=== PATIENT | male | born 1950 | race Caucasian/White ===

== ENCOUNTER 2025-02-19 12:47 | Emergency (ER) | payer OTHER, SELFPAY ==
--- NOTE | ~2025-02-19 | CT_ITS ---
CT facial & cervical spine wo Ordering provider: Anurag Dougherty MD History: . Jaw pain status post fall . Comparison: None. Technique: Thin slice axial CT of the facial bones was performed without contrast. Coronal and sagit horace reformatted images were also obtained. . Automated exposure control and iterative reconstruction technique were employed. The dose-length product was 563.94 mGy-cm. FINDINGS: PARANASAL SINUSES: Bilateral ethmoid, frontal and left sphenoid sinus disease. Otherwise, Well aerate d. BONES: No facial fracture including no nasal bone fracture. ORBITS AND SUPERFICIAL SOFT TISSUES: The optic globes and orbits are normal. Frontal scalp hematoma. Otherwise, The superficial soft tissues are normal. VISUALIZED MASTOIDS: Minimal right mastoid effusion otherwise, Well aerated. LIMITED VISUALIZED BRAIN PARENCHYMA: Normal. IMPRESSION: No facial fracture. Bilateral frontal, ethmoid and left sphenoid sinus disease. CT facial & cervical spine wo Ordering provider: Anurag Dougherty MD History: . Jaw pain status post fall . Comparison: None. Technique: CT of the cervical spine was performed without contrast. Sagittal and coronal reformatted images were also obtained and reviewed. Automated exposure control and iterative reconstruction lupillo hnique were employed. The dose-length product was 563.94 mGy-cm. FINDINGS: VERTEBRAE: Postoperative changes in C3, C4 and C5.. No subluxation or acute fracture. The occipital c ondyles are intact. DISC SPACES: Narrowing of the disc C5-C6. Disc spacers are seen at the level of C3-C4, and C4-5. Mult ilevel facet joint disease. Multilevel intervertebral foraminal narrowing. PARASPINOUS SOFT TISSUES: Normal. Nodule in the right apical area is seen measuring 6 mm. 6 months follow-up CT is advised. IMPRESSION: No acute osseous abnormality cervical spine. Degenerative disc disease at the level of C5-C6. Nodule in the right apical area. 6 months follow-up CT is advised Reviewed, dictated and finalized at location A. IMPRESSION: No facial fracture. Bilateral frontal, ethmoid and left sphenoid sinus disease. CT facial & cervical spine wo Ordering provider: Anurag Dougherty MD History: . Jaw pain status post fall . Comparison: None. Technique: CT of the cervical spine was performed without contrast. Sagittal a nd coronal reformatted images were also obtained and reviewed. Automated expos ure control and iterative reconstruction technique were employed. The dose-andrea th product was 563.94 mGy-cm. FINDINGS: VERTEBRAE: Postoperative changes in C3, C4 and C5.. No subluxation or acute fra cture. The occipital condyles are intact. DISC SPACES: Narrowing of the disc C5-C6. Disc spacers are seen at the level of C3-C4, and C4-5. Multilevel facet joint disease. Multilevel intervertebral for aminal narrowing. PARASPINOUS SOFT TISSUES: Normal. Nodule in the right apical area is seen measuring 6 mm. 6 months follow-up CT i s advised.
--- NOTE | ~2025-02-19 | CT_ITS ---
CT brain wo con Ordering provider: Anurag Dougherty MD History: 75 years Male with . Head injury . Comparison: None. Technique: CT of the head without contrast. Radiation reduction technique utilized.The dose-length pr oduct was 756.67 mGy-cm. FINDINGS: BRAIN PARENCHYMA AND CSF SPACES: Mild leukoaraiosis and diffuse cortical atrophy. Mild atheromatous d isease. No midline shift, mass effect or hemorrhage. The brain parenchyma and CSF spaces are otherwi se normal. VISUALIZED PARANASAL SINUSES: Bilateral ethmoid sinus disease. Right nasal septal deviation. Otherwis e, Normal. MASTOIDS: Normal. BONES: Normal. SOFT TISSUES: Visualized nasopharynx is normal. Scalp hematoma is seen in the frontal scalp. Otherwi se, Superficial soft tissues are normal. IMPRESSION: No acute intracranial findings. Reviewed, dictated and finalized at location A.
[2025-02-19 12:52] VITALS: BP 206/96; PULSE 82; RESP 16; O2SAT 98
--- NOTE | 2025-02-19 13:25 | ED_ITS ---
HPI - General Adult General Chief complaint: Fall Stated complaint: fall Time Seen by Provider: 02/19/25 12:57 History of Present Illness HPI narrative: Patient 75-year-old gentleman presents emergency department with chief complaint of head injury. [place] cane patient reports that he fell forward struck his head reports that he has a laceration to his forehead and reports that he has pain in his jaw and also in his neck. Patient reports unsure of his last tetanus shot reports no loss of consciousness reports that he is not on blood thinners or anti-platelet therapy Related Data Allergies Allergy/AdvReac Type Severity Reaction Status Date / Time No Known Allergies Allergy Verified 02/19/25 13:11 Review of Systems Review of Systems: A 10 system review of systems was completed on the patient and is negative except for what is stated in the HPI. Nursing and ancillary documentation was reviewed. [facility] Family History Family History Other Diabetes mellitus Family history of arthritis Social History Social History Smoking status: Never smoker Alcohol intake: current Exam Narrative: GENERAL: Well-appearing, well-nourished, and in no acute distress. HEAD: Normocephalic, 0.5 cm laceration to the forehead 1 cm laceration to the forehead 1.5 cm laceration of the forehead. EYES: PERRLA and EOMI. ENT: Nares clear, no rhinorrhea or epistaxis. Mucous membranes moist. NECK: Supple. Minimal tenderness to palpation in the left side of the neck and midline CHEST: Clear to auscultation. No respiratory distress. HEART: Regular rate and rhythm. No murmur heard. Normal peripheral pulses. ABDOMEN: Soft, nontender, nondistended, normal active bowel sounds. EXTREMITIES: Normal range of motion. No edema. SKIN: Warm, dry, no rash. NEURO: No focal deficits. Alert and oriented x3. PSYCH: Normal mood and affect. Course Vital Signs Vital signs: Vital Signs Pulse Rate 82 02/19/25 12:52 Respiratory Rate 16 02/19/25 12:52 Blood Pressure 206/96 H 02/19/25 12:52 Pulse Oximetry 98 02/19/25 12:52 Oxygen Delivery Room Air 02/19/25 12:52 Pulse Rate 82 02/19/25 12:52 Respiratory Rate 16 02/19/25 12:52 Blood Pressure 206/96 H 02/19/25 12:52 Pulse Oximetry 98 02/19/25 12:52 Oxygen Delivery Room Air 02/19/25 12:52 Procedures Laceration Laceration 1: Date: 02/19/25 Time: 13:28 Site: face Size (cm): 0.5 Description: linear Depth: simple, single layer Local Anesthetic: none Pre-repair: wound explored and irrigated ====== Skin Level ====== Skin layer closed with: dermabond ====== Subcutaneous Layer ====== ====== Muscle Layer ====== ====== Tendon Layer ====== Laceration 2: Date: 02/19/25 Time: 13:28 Site: face Side (If applicable): left Size (cm): 1.5 Description: linear Depth: simple, single layer Local Anesthetic: none Pre-repair: wound explored and irrigated ====== Skin Level ====== Skin layer closed with: dermabond ====== Subcutaneous Layer ====== ====== Muscle Layer ====== ====== Tendon Layer ====== Laceration 3: Date: 02/19/25 Time: 13:29 Site: face Side (If applicable): right Size (cm): 1 Description: linear Depth: simple, single layer Local Anesthetic: none Pre-repair: wound explored and irrigated ====== Skin Level ====== Skin layer closed with: dermabond ====== Subcutaneous Layer ====== ====== Muscle Layer ====== ====== Tendon Layer ====== Medical Decision Making MDM Narrative Medical decision making narrative: Differential diagnosis includes head injury, cervical spine fracture, facial fracture CT head was ordered as we were also scanning for facial fracture or cervical spine fracture CT head showed no acute abnormality CT facial bones showed no facial fracture was signs of sinusitis but the patient is not showing symptoms of sinusitis CT cervical spine showed no evidence of fracture there was a pulmonary nodule present in the right apex Vital Signs Vital Signs: Vital Signs Pulse Rate 82 02/19/25 12:52 Respiratory Rate 16 02/19/25 12:52 Blood Pressure 206/96 H 02/19/25 12:52 Pulse Oximetry 98 02/19/25 12:52 Oxygen Delivery Room Air 02/19/25 12:52 Pulse Rate 82 02/19/25 12:52 Respiratory Rate 16 02/19/25 12:52 Blood Pressure 206/96 H 02/19/25 12:52 Pulse Oximetry 98 02/19/25 12:52 Oxygen Delivery Room Air 02/19/25 12:52 Discharge Plan Discharge Clinical Impression: Head injury, Fall from ground level, Face lacerations, Pulmonary nodule Patient Disposition: Home Condition: Stable Instructions: Antibiotic Form, Laceration (ED), Head Injury (ED), Skin Adhesive Care (ED), Pulmonary Nodules (ED) Additional Instructions: Your CT scan showed a pulmonary nodule in the right apex of your lung this will need to be followed up by your primary care provider and may need additional imaging in the next 6 months to make sure that there is no change Patient Language: Georgian Follow-up/Referrals: UNKNOWN,DOCTOR [Primary Care Provider] -
[2025-02-19 14:44] VITALS: BP 196/89; PULSE 72; RESP 16; TEMP 36.9; O2SAT 96
[2025-02-19] MEDS: TETANUS,DIPHTHERIA,AC PERTUSSIS ADULT (0.5 ML) BOOSTRIX IM (14:47)
--- OUTSIDE RECORDS SUMMARY | 2025-02-19 14:54 | XMS_ITS | Encounter Summary ---
Author Organization [employer] Address [address] [place] [address] Care Team Providers Care Cd Mixer Helper Name Role Phone [facility], External Provider Primary Care Provider Un available Encounter Details Date Type Department Care Team (Latest Contact Info) Description 06/13/2004 Outpatient [facility] Mario Duque MD [address] [address] MALIGN NEOPL PROSTATE (CMS/HCC) (Primary Dx) Social History Tobacco Use Types Packs/Day Years Used Date Smoking Tobacco: Never Assessed Sex and Gender Information Value Date Recorded Sex Assigned at Not on file Legal Sex Male 4:00 AM PULMONARY FELLOW Gender Identity Not on file Sexual Orientation Not on file documented as of this encounter Plan of Treatment Not on file documented as of this encounter Visit Diagnoses Diagnosis Malignant neoplasm of prostate (CMS/HCC)- Primary Malignant neoplasm of prostate documented in this encounter Care Teams Cd Mixer Helper Relationship Specialty Start Date End Date [facility], External Provider [address] [place] [address] PCP - General 08/04/16 documented as of this encounter
--- OUTSIDE RECORDS SUMMARY | 2025-02-19 14:54 | XMS_ITS | Encounter Summary ---
Author Organization [employer] Address [address] [place] [address] Care Team Providers Care Tub Tender Name Role Phone [facility], External Provider Primary Care Provider Un available Encounter Details Date Type Department Care Team (Latest Contact Info) Description 12/02/2004 Outpatient Historical [facility] Mario Duque MD [address] [address] MALIGN NEOPL PROSTATE (CMS/HCC) (Primary Dx) Social History Tobacco Use Types Packs/Day Years Used Date Smoking Tobacco: Never Assessed Sex and Gender Information Value Date Recorded Sex Assigned at Not on file Legal Sex Male 4:00 AM COAT AGENT Gender Identity Not on file Sexual Orientation Not on file documented as of this encounter Plan of Treatment Not on file documented as of this encounter Procedures Procedure Name Priority Date/Time Associated Diagnosis Comments PSA Routine 12/02/2004 11:04 AM CDT documented in this encounter Results * PSA (12/02/2004 11:04 AM CDT) PSA <0.1 0.0 - 4.0 ng/mL INTERFACE SYSTEM Comment:Performed on [email or web address] System 12/02/2004 11:0 4 AM CDT us Mario Duque MD CHEMISTRY ORDERABLES Final Result INTERFACE SYSTEM Refer to clinic/hospital department documented in this encounter Visit Diagnoses Diagnosis Malignant neoplasm of prostate (CMS/HCC)- Primary Malignant neoplasm of prostate documented in this encounter Care Teams Tub Tender Relationship Specialty Start Date End Date [facility], External Provider [address] [place] [address] PCP - General 08/04/16 documented as of this encounter
--- OUTSIDE RECORDS SUMMARY | 2025-02-19 14:54 | XMS_ITS | Encounter Summary ---
Author Organization [employer] Address [address] [place] [address] Care Team Providers Care Ship Design Teacher Name Role Phone [facility], External Provider Primary Care Provider Un available Encounter Details Date Type Department Care Team (Late st Contact Info) Description 10/13/2005 Outpatient Historical [facility] ([facility] [address] 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
--- OUTSIDE RECORDS SUMMARY | 2025-02-19 14:54 | XMS_ITS | Encounter Summary ---
Author Organization [employer] Address [address] [place] [address] Care Team Providers Care Telecom Network Manager Name Role Phone [facility], External Provider Primary Care Provider Un available Encounter Details Date Type Department Care Team (Latest Contact Info) Description 09/07/2004 Outpatient [facility] Mario Duque MD [address] [address] MALIGN NEOPL PROSTATE (CMS/HCC) (Primary Dx) Social History Tobacco Use Types Packs/Day Years Used Date Smoking Tobacco: Never Assessed Sex and Gender Information Value Date Recorded Sex Assigned at Not on file Legal Sex Male 4:00 AM FINANCIAL COMPLIANCE OFFICER Gender Identity Not on file Sexual Orientation Not on file documented as of this encounter Plan of Treatment Not on file documented as of this encounter Procedures Procedure Name Priority Date/Time Associated Diagnosis Comments PSA Routine 09/07/2004 1:27 PM FINANCIAL COMPLIANCE OFFICER documented in this encounter Results * PSA (09/07/2004 1:27 PM FINANCIAL COMPLIANCE OFFICER) PSA <0.1 0.0 - 4.0 ng/mL INTERFACE SYSTEM Comment:Performed on [email or web address] System 09/07/2004 1:27 PM FINANCIAL COMPLIANCE OFFICER us Mario Duque MD CHEMISTRY ORDERABLES Final Result INTERFACE SYSTEM Refer to clinic/hospital department documented in this encounter Visit Diagnoses Diagnosis Malignant neoplasm of prostate (CMS/HCC)- Primary Malignant neoplasm of prostate documented in this encounter Care Teams Telecom Network Manager Relationship Specialty Start Date End Date [facility], External Provider [address] [place] [address] PCP - General 08/04/16 documented as of this encounter
--- OUTSIDE RECORDS SUMMARY | 2025-02-19 14:54 | XMS_ITS | Encounter Summary ---
Author Organization [employer] Address [address] [place] [address] Care Team Providers Care Nurse Auditor Name Role Phone [facility], External Provider Primary Care Provider Un available Encounter Details Date Type Department Care Team (Late st Contact Info) Description 11/14/2006 Outpatient Historical [facility] Mario Duque MD [address] [address] Social History Tobacco Use Types Packs/Day Years Used Date Smoking Tobacco: Never Assessed Sex and Gender Information Value Date Recorded Sex Assigned at Not on file Legal Sex Male 4:00 AM STOCK RAISER Gender Identity Not on file Sexual Orientation Not on file documented as of this encounter Plan of Treatment Not on file documented as of this encounter Visit Diagnoses Not on filedocumented in this encounter Care Teams Nurse Auditor Relationship Specialty Start Date End Date [facility], External Provider [address] [place] [address] PCP - General 08/04/16 documented as of this encounter
--- OUTSIDE RECORDS SUMMARY | 2025-02-19 14:54 | XMS_ITS | Encounter Summary ---
Author Organization [employer] Address [address] [place] [address] Care Team Providers Care Ladle Puller Name Role Phone [facility], External Provider Primary Care Provider Un available Encounter Details Date Type Department Care Team (Latest Contact Info) Description 01/14/2004 Outpatient Historical [facility] Mario Duque MD [address] [address] MALIGN NEOPL PROSTATE (CMS/HCC) (Primary Dx) Social History Tobacco Use Types Packs/Day Years Used Date Smoking Tobacco: Never Assessed Sex and Gender Information Value Date Recorded Sex Assigned at Not on file Legal Sex Male 4:00 AM WELLNESS DIRECTOR Gender Identity Not on file Sexual Orientation Not on file documented as of this encounter Plan of Treatment Not on file documented as of this encounter Visit Diagnoses Diagnosis Malignant neoplasm of prostate (CMS/HCC)- Primary Malignant neoplasm of prostate documented in this encounter Care Teams Ladle Puller Relationship Specialty Start Date End Date [facility], External Provider [address] [place] [address] PCP - General 08/04/16 documented as of this encounter
--- OUTSIDE RECORDS SUMMARY | 2025-02-19 14:54 | XMS_ITS | Encounter Summary ---
Author Organization [employer] Address [address] [place] [address] Care Team Providers Care Computer Systems Technology Instructor Name Role Phone [facility], External Provider Primary Care Provider Un available Encounter Details Date Type Department Care Team (Latest Contact Info) Description 10/19/2005 Outpatient Historical [facility] Mario Duque MD [address] [address] Personal History of Malignant Neoplasm of Prostate (Primary Dx) Social History Tobacco Use Types Packs/Day Years Used Date Smoking Tobacco: Never Assessed Sex and Gender Information Value Date Recorded Sex Assigned at Not on file Legal Sex Male 4:00 AM SOCIAL MEDIA CAMPAIGN MANAGER Gender Identity Not on file Sexual Orientation Not on file documented as of this encounter Plan of Treatment Not on file documented as of this encounter Procedures Procedure Name Priority Date/Time Associated Diagnosis Comments POC, BLOOD GASES Routine 10/19/2005 11:3 6 AM SOCIAL MEDIA CAMPAIGN MANAGER POC GLUCOSE Routine 10/19/2005 11:33 AM SOCIAL MEDIA CAMPAIGN MANAGER POC GLUCOSE Routine 10/19/2005 8:17 AM SOCIAL MEDIA CAMPAIGN MANAGER HEMOGLOBIN AND HEMATOCRIT Routine 10/13/2005 10:43 AM SOCIAL MEDIA CAMPAIGN MANAGER BASIC METABOLIC PANEL Routine 10/13/2005 10:43 AM SOCIAL MEDIA CAMPAIGN MANAGER documented in this encounter Results * POC RT, BLOOD GASES (10/19/2005 11:36 AM SOCIAL MEDIA CAMPAIGN MANAGER) PATIENT'S TEMPERATURE 37.0 Degree C INTERFACE SYSTEM POTASSIUM POC 4.3 3.5 - 4.9 mmol/L INTERFACE SYSTEM 10/19/2005 11:3 6 AM SOCIAL MEDIA CAMPAIGN MANAGER us Mario Duque MD CHEMISTRY ORDERABLES Final Result Performing Organization Address [facility] Phone Number INTERFACE SYSTEM Refer to clinic/hospital department * (ABNORMAL) POC GLUCOSE (10/19/2005 11:33 AM SOCIAL MEDIA CAMPAIGN MANAGER) GLUCOSE POC 242(H) 65 - 109 mg/dL INTERFACE SYSTEM 10/19/2005 11:3 3 AM SOCIAL MEDIA CAMPAIGN MANAGER us Mario Duque MD POINT OF CARE TESTING Final Result Performing Organization Address [facility] Phone Number INTERFACE SYSTEM Refer to clinic/hospital department * (ABNORMAL) POC GLUCOSE (10/19/2005 8:17 AM SOCIAL MEDIA CAMPAIGN MANAGER) GLUCOSE POC 292(H) 65 - 109 mg/dL INTERFACE SYSTEM 10/19/2005 8:17 AM SOCIAL MEDIA CAMPAIGN MANAGER Result Bernabe Duque MD POINT OF CARE TESTING Final Result Performing Organization Address [facility] Phone Number INTERFACE SYSTEM Refer to clinic/hospital department * HEMOGLOBIN AND HEMATOCRIT (10/13/2005 10:43 AM SOCIAL MEDIA CAMPAIGN MANAGER) HEMOGLOBIN 15.2 13.6 - 16.5 g/dL INTERFACE SYSTEM HEMATOCRIT 43.7 40.0 - 48.0 % INTERFACE SYSTEM 10/13/2005 10:4 3 AM SOCIAL MEDIA CAMPAIGN MANAGER Result Bernabe Duque MD HEMATOLOGY ORDERABLES Final Result Performing Organization Address [facility] Phone Number INTERFACE SYSTEM Refer to clinic/hospital department * (ABNORMAL) BASIC METABOLIC PANEL (10/13/2005 10:43 AM SOCIAL MEDIA CAMPAIGN MANAGER) GLUCOSE 281(H) 65 - 109 mg/dL INTERFACE SYSTEM CREATININE 1.0 0.5 - 1.3 mg/dL INTERFACE SYSTEM CALCIUM 9.2 8.6 - 10.2 mg/dL INTERFACE SYSTEM BUN 19 6 - 20 mg/dL INTERFACE SYSTEM SODIUM 138 135 - 145 mmol/L INTERFACE SYSTEM POTASSIUM 4.3 3.5 - 4.9 mmol/L INTERFACE SYSTEM CHLORIDE 105 96 - 108 mmol/L INTERFACE SYSTEM CO2 25 22 - 30 mmol/L INTERFACE SYSTEM 10/13/2005 10:4 3 AM SOCIAL MEDIA CAMPAIGN MANAGER us Mario Duque MD CHEMISTRY ORDERABLES Final Result INTERFACE SYSTEM Refer to clinic/hospital department documented in this encounter Visit Diagnoses Diagnosis Personal history of malignant neoplasm of prostate- Primary documented in this encounter Care Teams Computer Systems Technology Instructor Relationship Specialty Start Date End Date [facility], External Provider [address] [place] [address] PCP - General 08/04/16 documented as of this encounter
--- OUTSIDE RECORDS SUMMARY | 2025-02-19 14:54 | XMS_ITS | Encounter Summary ---
Author Organization [facility] Address [address] [place] [address] Care Team Providers Care Regional Safety Manager Name Role Phone Juan Humphries MD Primary Care Provider [phone] Juan Humphries MD Primary Care Provider [phone] Shira Duke MD Primary Care Provider [phone] Thad Dale MD Unavailable [phone] Fracisco Cedeno MD Unavailable [phone] Mirna Reid MD Primary Care Provider [phone] Arabella Jaquez MD Primary Care Provider + Encounter Details Date Type Department Care Team (Late st Contact Info) Description 08/24/2016 Orders Only [facility] Dean Gupta MD [address] [place] [address] Social History Tobacco Use Types Packs/Day Years Used Date Smoking Tobacco: Never Assessed Sex and Gender Information Value Date Recorded Sex Assigned at Not on file Legal Sex Male 9:01 AM ENGINEERING SUPPLIES SALES Gender Identity Not on file Sexual Orientation Not on file documented as of this encounter Plan of Treatment Not on file documented as of this encounter Procedures Procedure Name Priority Date/Time Associated Diagnosis Comments CARDIOLOGY REPORT 08/24/2016 documented in this encounter Results * CARDIOLOGY REPORT (08/24/2016) Anatomical Region Laterality Modality Other Narrative 08/24/2016 Ordered by an unspecified provider. us Historical Provider [facility] DILIA THOMPSON Final Result documented in this encounter Visit Diagnoses Not on filedocumented in this encounter Additional Health Concerns Infection Onset Date Last Indicated Resolved Time COVID: Suspected 05/18/2021 05/26/2021 05/26/2021 2:49 PM CDT COVID: Suspected 05/31/2021 06/01/2021 06/01/2021 4:16 PM CDT documented as of this encounter Care Teams Regional Safety Manager Relationship Specialty Start Date End Date Juan Humphries MD PCP - General 11/03/16 10/19/20 Juan Humphries MD PCP - General 08/24/16 11/02/16 Shira Duke MD [address] [place] [address] PCP - General Internal Medicine 10/20/20 08/07/22 Mirna Reid MD [address] [place] [address] PCP - General Internal Medicine 08/08/22 06/26/24 Arabella Jaquez MD [address] [place] [address] PCP - General Internal Medicine 06/27/24 Thad Dale MD [address] [place] [address] Consulting Physician Rheumatology 11/12/20 Fracisco Cedeno MD [address] [place] [address] Consulting Physician Cardiothoracic Surgery 01/21/21 documented as of this encounter
--- OUTSIDE RECORDS SUMMARY | 2025-02-19 14:54 | XMS_ITS | Clinical Summary ---
Author Organization [facility] [address] [place] [address] Care Team Providers Care Warp Trucker Name Role Phone Thad Dale MD Unavailable Fracisco Cedeno MD Unavailable [phone] Arabella Jaquez MD Primary Care Provider + Allergies Active Allergy Reactions Criticality Noted Date Comments Cat Dander Itching Low 10/28/2020 Redness, nasal congestion, blister Medications rosuvastatin (CRESTOR) 20 mg tablet Take 1 tablet (20 mg total) by mouth daily 90 tablet 3 10/10/19 24 Active insulin glargine 100 unit/mL (3 mL) pen for injectionIndica tions:Type 2 diabetes mellitus with hyperglycemia, unspecified whether exterminator helper insulin use (HCC) ADMINISTER 32 UNITS UNDER THE SKIN EVERY NIGHT 3 mL 3 01/09/20 24 Active losartan (COZAAR) 25 mg tablet Take 0.5 tablets (12.5 mg total) by mouth daily 45 tablet 2 01/14/20 24 Active Additional Information Patient taking differently: 25 mgoral Daily, Reported on 10/28/2024 metoprolol tartrate (LOPRESSOR) 25 mg immediate release tablet Take 1 tablet (25 mg total) by mouth 2 (two) times a day 180 tablet 3 01/14/20 24 Active Additional Information Patient taking differently:25 mg oralDaily, Reported on 10/28/2024 benzonatate (TESSALON) 100 mg capsule TAKE 1 CAPSULE BY MOUTH THREE TIMES DAILY NEEDED FOR COUGH 06/10/20 24 Active furosemide (LASIX) 40 mg tablet Take 1 tablet (40 mg total) by mouth 2 (two) times a day 180 tablet 3 11/06/19 25 026 Active insulin glargine (insulin glargine) 100 unit/mL (3 mL) pen for injection Inject 32 Units under the skin nightly BASAGLAR 3 mL 3 11/11/19 22 022 Discontinued Active Problems Problem Noted Date Diagnosed Date CKD (chronic kidney disease) stage 3, GFR 30-59 ml/min 10/10/2023 Morbid (severe) obesity due to excess calories 0 08/12/2022 Suspected sleep apnea 08/12/2022 Vitamin D deficiency 08/12/2022 Assessment & Plan (12/16/2022 3:08 PM CDT): Currently not taking vitamin-D advised patient after getting blood work today to start taking vitamin-D 2000 IU Vertigo 08/12/2022 Wheezing 08/12/2022 Disorder of soft tissue 07/07/2022 Overview (07/07/2022): Added automatically from request for surgery [id number] Type 2 diabetes mellitus with hyperglycemia 08/2021 Assessment & Plan (12/16/2022 3:07 PM CDT): Concern regarding patient's hypoglycemia. Reduce insulin. Due to patient's poor memory has not been getting labs Facial laceration 12/01/2021 Assessment & Plan (12/01/2021 2:03 PM CDT): Sutures removed today Advise keeping clean with soap and water, leaving to air for healing if signs of fever, dischare or new redness around laceration he is to notify me Weakness 10/06/2021 Assessment & Plan (10/06/2021 12:35 PM JOB COACH/JOB DEVELOPER): With walking, needed assistance yesterday On exam L>R and R sided pill rolling tremor as well Needs neurologic work up With cokmplicated back surgery hx advise back imaging as well- referral to neurosurgery and MRI brain, spine orderex Postnasal drip 10/06/2021 Assessment & Plan (10/06/2021 12:38 PM JOB COACH/JOB DEVELOPER): Restart flonase Cont atarax but would cconsider cutting down on dose dt sleepiness Cough 05/31/2021 Assessment & Plan (05/31/2021 5:27 PM CDT): Concerned fluid overload though lung exam unremarakble, o2 sat normal Osito rec cxr If normal, would assume allergy related and do zyrtec/flonase Leg swelling 05/31/2021 Assessment & Plan (05/31/2021 5:28 PM CDT): B/l urgent venoius dopplers LE done today- both negative Dt noncompliance w/lasix Status post coronary artery bypass graft 021 Urinary incontinence 03/17/2021 Assessment & Plan (07/12/2021 10:52 AM JOB COACH/JOB DEVELOPER): Full incontinence Wears depends Needs to see uro S/p prostatectomy Assessment & Plan (05/31/2021 5:28 PM CDT): Advise uro- referral placed for [facility] urology per pt request S/p prostatectomy Impeding on his compliance with lasix Assessment & Plan (03/17/2021 12:39 PM CDT): Needs to see uro Attention-deficit hyperactivity disorder, unspec ified type 01/21/2021 01/11/2023 Chronic kidney disease, stage 2 (mild) 01/11/2023 Essential (primary) hypertension 01/21/2021 01/11/2023 Hyperlipidemia, unspecified 01/21/2021 06/0 03/2023 Malignant neoplasm of prostate 01/21/2021 0 01/11/2023 Chest pain 01/12/2021 NSTEMI (non-ST elevated myocardial infarction) 0 01/12/2021 Assessment & Plan (12/16/2022 3:06 PM CDT): Discussed with patient concern with hypoglycemia CHF (congestive heart failure) 01/12/2021 Overview (02/17/2021): S/[facility] 6v cab[facility]/2021 In [facility] after Assessment & Plan (03/17/2021 12:38 PM CDT): On lasix 40 mg twice daily - cont but he needs to take this consistently, incontinence is a big issue for him. Referring to urology. Assessment & Plan (02/17/2021 12:22 PM CDT): S/p cabg 01/2021 Pitting edema is notable today- inc lasix to 60 mg bid- bmp in [address] priest next week Starting nadine Bilateral leg edema 12/10/2020 Assessment & Plan (07/12/2021 10:53 AM JOB COACH/JOB DEVELOPER): zayda has him on lasix 40 mg/da- only takes several days a week dt incontinence. Advise compression stockings at a min Assessment & Plan (03/17/2021 12:38 PM CDT): 2-3+ today Needs to take lasx consistently and rec compression stockings Assessment & Plan (12/10/2020 10:02 AM CDT): Possibly dt weight gain which is due from insulin Advised compression stockings Monitor for now Cr good Consider echo if develops diana, orthopnea or this worsens Pure hypercholesterolemia initially LDL 193 04/0 03/2021 Assessment & Plan (12/16/2022 3:06 PM CDT): Last LDL down to 67 on 20 mg Crestor. History of and STEMI thus high dose. Continues Assessment & Plan (12/10/2020 9:59 AM CDT): Try pravastatin- if muscle aches and pains, weakness- need to stop Assessment & Plan (11/11/2020 2:53 PM CDT): Ultimate goal is LDL <80 Starting statin Discussed risk/benefits- If you develop diffuse muscle or joint pains, please stop the medication and call our office. Recheck labwork/lft/ck 4-6 weeks after starting statin History of spinal fusion 09/21/2016 Overview (11/10/2016): History of spinal fusion Spinal stenosis of cervical region 09/21/2016 Overview (11/10/2016): Cervical region spinal stenosis Assessment & Plan (12/01/2021 2:04 PM CDT): Fall is concerning, I'm concerned his gait is contributing. He plans to get MRI's set up, but he pays jade for everything so cost is an issue. Family hx of prostate cancer 01/05/2000 Assessment & Plan (10/31/2020 10:04 PM CDT): Checking psa Elevated antinuclear antibody (SONI) level 1999 Assessment & Plan (11/11/2020 2:50 PM CDT): He would like to hold off on rhuem referral for now willl monitor symptoms for now Assessment & Plan (10/31/2020 10:04 PM CDT): 08/2016- checked by orthospine Recheck 2 sisters with RA and his mom Raynaud's disease without gangrene 01/05/2000 Assessment & Plan (11/11/2020 2:50 PM CDT): Consider ccb, for now would work on core warming and hot hands Assessment & Plan (10/31/2020 10:05 PM CDT): From description vs neuropathy? Positive soni , working up ai Resolved Problems Problem Noted Date Diagnosed Date Resolved Date Low vitamin D level 11/02/2016 01/13/20 21 Overview (12/29/2016): Hypovitaminosis D Assessment & Plan (11/11/2020 2:51 PM CDT): Replete with high dose weekly, then 2000 international units daily angel gterm Compression fracture of vertebral column 08/30/2016 01/12/2021 Overview (11/10/2016): Compression fx of vertebra Type 2 diabetes mellitus 08/24/201602/2023 Overview (11/11/2016): Diabetes mellitus Assessment & Plan (10/06/2021 12:39 PM JOB COACH/JOB DEVELOPER): Increase tujeo to 32 units Needs to consistently take aspart 8 units bid, he has not been doing this dt sporadic eating schedule Would like to do more frequent checks between appts to titrate better, however he doesn't want to do fingersticks. This is making his control very difficult and I advise he reconsider but again does not wish to and wants to cont with every 3 month checks. Cont losartan- on 12.5 mg daily Assessment & Plan (07/12/2021 10:53 AM JOB COACH/JOB DEVELOPER): Uncontrolled Advise glucometer, he wants to hold off but will consider. Advise carrying around glucose tablets to take if he feels dizzy/lightheaded, presDelpor Inc tujeo to 26 units qhs aspart 8 units bid (only eats 1-2 meals daily) Cont with good low carb diet, exercise, staying active Assessment & Plan (05/31/2021 5:30 PM CDT): ha1c jumped a whole pt- advise lantus 22 units for now, he does not have glucose meter dt no smart phone and doesn't like finger stick Assessment & Plan (03/16/2021 9:12 AM CDT): Checking hac today lantus 20 units at beditme and 10 units in am 10 units short acting when he eats. Assessment & Plan (02/17/2021 12:20 PM CDT): Cont current lantus/novolog doses He has a kassandra but no smart phone- looking in to alternative options for this Assessment & Plan (12/10/2020 10:00 AM CDT): Increasing tuojeo to 20 mg qhs Inc novolog to 6 units tid- skip if he skips a meal for now Advised to buy gluc tablets if dizziness/or lightheadedness. Assessment & Plan (11/11/2020 2:51 PM CDT): Uncontrolled Starting longacting and short acting insulin `needs to check tid blood sugars, will titrate insulin as we need to Assessment & Plan (10/31/2020 10:03 PM CDT): [place] [address] [place] Need to check numbers now, was on insulin at one point, on nothing now Closed fracture of right hip with routine healing 01/05/2000 01/12/2021 Assessment & Plan (10/31/2020 10:04 PM CDT): Likely needs bone scan? Discuss at next appt Encounters Date Type Department Care Team Description 01/14/2025 Orders Only [facility] Nephrology at [address] [place] [id number] Provider, MD Dean from Last 3 Months Immunizations Immunization Administration Dates Next Due Influenza, Quad, Adjuvantate d, Intramuscular 06/22/2021 Influenza, Quadrivalent, Hig h Dose, Preservative Free, Intrr 05/01/2023 PPD TEST 01/31/2021,01/22/2021 Pfizer SARS-CoV-2 Monovalent Vaccination (12+ Yrs) PURPLE 06/22/2021,10/22/2020,10/22/2020,09/28,09/28/2020 Pneumococcal Conjugate PCV 13 02/28/2016 Pneumococcal Polysaccharide PPV23 03/16/2021 Tdap 02/06/2011 ZOSTER Recombinant 08/08/2022(Deferred: Patient Refused) Surgical History Surgery Date Site/Laterality Comments HERNIA REPAIR 08/06/2007 - 08/05/2008 Right ingunial HIP SURGERY Right 03/28/2018 PROSTATECTOMY HEART SURGERY 01/21/2021 US GUIDED THORACENTESIS 02/17/2021 N/A Medical History Medical History Date Comments Arthritis C5-6 Malignant neoplasm of prostate (HCC) 03/09/2004 Cancer, prostate; Comments: BRW 08/15/2016 - Type 2 diabetes mellitus (HCC) 01/05/2000 D iabetes type 2; Comments: BRW 08/15/2016 - ADD (attention deficit disorder) Coronary artery disease Hyperlipidemia Hypertension Family History Medical History Relation Name Comments Alcohol abuse Father Lung cancer Mother Relation Name Status Comments Father Mother Social History Tobacco Use Types Packs/Day Years Used Date Smoking Tobacco: Never Smokeless Tobacco: Never Tobacco Cessation:Counseling Given: Not Answered Alcohol Use Standard Drinks/Week Comments No 0 (1 standard drink = 0.6 oz pur e alcohol) AUDIT-C Answer Date Recorded Q1: How often do you have a drink containing alc ohol? Monthly or less 01/14/2024 Average Number of Drinks Not on file 024 Frequency of Binge Drinking Not on file 01/04 PHQ-2 Answer Date Recorded PHQ-2 Total Score (If total score is 3 or more points, staff should administer the PHQ-9) 0 05/01/2023 Sex and Gender Information Value Date Recorded Sex Assigned at Not on file Legal Sex Male 9:01 AM JOB COACH/JOB DEVELOPER Gender Identity Not on file Sexual Orientation Not on file Obstetrics History Last Filed Vital Signs Vital Sign Reading Time Taken Comments Blood Pressure 159/81 10/28/2024 3:54 PM CDT Pulse 93 10/28/2024 3:32 PM CDT Temperature 36.6 C (97.8 F) 10/28/2024 3:32 PM CDT Respiratory Rate 20 01/11/2023 4:12 PM CDT Oxygen Saturation 99% 05/01/2023 2:52 PM CDT Inhaled Oxygen Concentration - - Weight 132.4 kg (291 lb 12.8 oz) 10/28/2024 3:32 PM CDT Height 188 cm (6' 2) 10/28/2024 3:32 PM CDT Body Mass Index 37.46 10/28/2024 3:32 PM CDT Plan of Treatment Health Maintenance Due Date Last Done Comments Colon Cancer Screening-Colonoscopy 1950 Hepatitis B Screening 02/11/1968 Zoster Vaccine (1 of 2) 02/11/2000 Well Visit 65+ 2015 DTaP/Tdap/Td Vaccine (2 - Td or Tdap) 02/06/2021 02/06/2011 Fall Risk Assessment 08/08/2023 08/08/2022, 01/21/2021, 11/09/2020, Additional history exists Foot Exam 12/12/2023 12/11/2022 Dilated Eye Exam 02/03/2024 02/02/2023 Covid-19 Vaccine (7 - 2023-2 5 season) 2024 07/13/2021, 06/22/2021, 10/22/2020, Additional history exists Depression Screening 05/01/2024 05/01/2023, 05/01/2023, 11/17/2021, Additional history exists eGFR 09/07/2024 09/07/2023, 02/0 09/2023, 07/07/2023, Additional history exists Albumin Creatinine Ratio, Urine 09/08/2024 4, 01/17/2023 Hemoglobin A1C 12/14/2024 06/16/2024, 02/0 09/2023, 01/17/2023, Additional history exists Lipid Panel 2025 02/11/2024, 02/0 09/2023, 01/17/2023, Additional history exists Influenza Vaccine (#1) 2025 , 05/01/2023, 06/22/2021 Hepatitis C Screening Completed 01/17/2023 Pneumococcal vaccine 65+ Completed 024, 03/16/2021, 02/28/2016 Procedures Procedure Name Priority Date/Time Associated Diagnosis Comments CBC - COMPLETE BLOOD COUNT, NO DIFFERENTIAL - [facility] Routine 01/13/2025 4:59 PM CDT BMP - BASIC METABOLIC PANEL (7) Routine 01/13/2025 4:57 PM CDT HEMOGLOBIN A1C Routine 06/16/2024 1:24 PM JOB COACH/JOB DEVELOPER ALBUMIN CREATININE RATIO, URINE Routine 09/08/2023 5:10 AM JOB COACH/JOB DEVELOPER EGFR Routine 09/07/2023 3:22 PM JOB COACH/JOB DEVELOPER Laboratory examination ordered as part of a complete physical examination Other general symptoms and signs LIPID PANEL Routine 09/07/2023 3:22 PM JOB COACH/JOB DEVELOPER Laboratory examination ordered as part of a complete physical examination Screening for cardiovascular condition HEPATITIS C ANTIBODY Routine 01/17/2023 8:54 AM CDT Need for hepatitis C screening test from Last 3 Months or Most Recently Relevant to Health Maintenance Results * CBC - Complete Blood Count, No Differential - [facility] (01/13/2025 4:59 PM CDT) Result [facility] Historical Provider MD LAB BLOOD ORDERABLES Aniya l Result Performing Organization Address City/[facility] Co de Phone Number EXTERNAL LAB * BMP - Basic Metabolic Panel (7) (01/13/2025 4:57 PM CDT) Result [facility] Provider LAB BLOOD ORDERABLES Aniya l Result Performing Organization Address [facility] Co de Phone Number EXTERNAL LAB * (ABNORMAL) Hemoglobin A1c (06/16/2024 1:24 PM JOB COACH/JOB DEVELOPER) Blood Result [facility] Provider MD LAB BLOOD ORDERABLES Aniya l Result Performing Organization Address [facility] de Phone Number EXTERNAL LAB * (ABNORMAL) Albumin Creatinine Ratio, Urine (09/08/2023 5:10 AM JOB COACH/JOB DEVELOPER) Albumin Ur 311.0 mg/L [facility] Comment: Interpretive Data No reference range established. Current interpretive data was last revised 2018. Creatinine Ur 131.0 mg/dL [facility] Comment: Interpretive Data No reference range established. Current interpretive data was last revised 2018. Albumin Creatinine Ratio, Ur 237(H) 1 - 29 mg/g [facility]OL[facility] Urine 09/08/2023 5:10 AM JOB COACH/JOB DEVELOPER 09/08/2023 10:40 AM JOB COACH/JOB DEVELOPER Result [facility] Mirna Reid MD LAB URINE ORDERABLES Final R esult Performing Organization Address City/[facility] Co de Phone Number [place] [address] Department [place] [address] * eGFR (09/07/2023 3:22 PM JOB COACH/JOB DEVELOPER) eGFR 52 mL/min/1. 73 m2 [facility] Comment: Interpretive Data Reference Interval Normal >/= 90 mL/min/1.73m2 Mildly decreased* 60 - 89 mL/min/1.73m2 Mildly to moderately decreased 45 - 59 mL/min/1.73m2 Moderately to severely decreased 30 - 44 mL/min/1.73m2 Severely decreased 15 - 29 mL/min/1.73m2 Kidney Failure < 15 mL/min/1.73m2 *Relative to young adult level Estimated glomerular filtration rate is determined by the 2020 CKD-EPI equation recommended by the National Kidney Foundation (A Unifying Approach to GFR Estimation: Recommendations of the NKF-ASK Task Force on Reassessing the Inclusion of Race in Diagnosing Kidney Disease, JASN 2020). The CKD-EPI equation should not be used for patients with unstable renal function and has not been validated in children and those over 70. Current interpretive data was last reviewed 2021. Blood 09/07/2023 3:22 PM JOB COACH/JOB DEVELOPER 09/07/2023 3:45 PM JOB COACH/JOB DEVELOPER us Mirna Reid MD LAB BLOOD ORDERABLES Final R esult [place] [id number] [place] [address] * (ABNORMAL) Lipid panel (09/07/2023 3:22 PM JOB COACH/JOB DEVELOPER) Cholesterol 227(H) 30 - 199 mg/dL [facility] Comment: Interpretive Data Ages < or = 19 years Acceptable: <170 mg/dL Borderline high: 170-199 mg/dL High: >or= 200 mg/dL Ages > or = 20 years Desirable: <200 mg/dL Borderline high: 200-239 mg/dL High: >or= 240 mg/dL Literature References: 1. Expert Panel on Integrated Guidelines for Cardiovascular Health and Risk Reduction in Children and Adolescents. Pediatrics 2011;128:S213 2. NCEP Expert Panel. Circulation 2004;110:227 Current Interpretive Data was last revised on 2018. Triglycerides 94 <=149 mg/dL [facility] Comment: Interpretive Data Ages < or = 9 years Acceptable: <75 mg/dL Borderline high: 75-99 mg/dL High: >or= 100 mg/dL Ages 10 to 20 years Acceptable: <90 mg/dL Borderline high: 90-129 mg/dL High: >or= 130 mg/dL Ages > or = 20 years Desirable: <150 mg/dL Borderline high: 150-199 mg/dL High: 200-499 mg/dL Very high: >or= 499 mg/dL Literature References: 1. Expert Panel on Integrated Guidelines for Cardiovascular Health and Risk Reduction in Children and Adolescents. Pediatrics 2011;128:S213 2. NCEP Expert Panel. Circulation 2004;110:227 Current Interpretive Data was last revised on 2018. HDL 38(L) >=40 mg/dL [facility] Comment: Interpretive Data Ages < or = 19 years Acceptable: >45 mg/dL Borderline low: 40-45 mg/dL Low: <40 mg/dL Ages > or = 20 years Desirable: >or= 60 mg/dL Low: <40 mg/dL Literature References: 1. Expert Panel on Integrated Guidelines for Cardiovascular Health and Risk Reduction in Children and Adolescents. Pediatrics 2011;128:S213 2. NCEP Expert Panel. Circulation 2004;110:227 Current Interpretive Data was last revised on 2018. LDL, calculated 170(H) <=129 mg/dL [facility] Comment: Interpretive Data Ages < or = 19 years Acceptable: <110 mg/dL Borderline high: 110-129 mg/dL High: >or= 130 mg/dL Ages > or = 20 years Optimal: <100 mg/dL Near optimal: 100-129 mg/dL Borderline high: 130-159 mg/dL High: >160 mg/dL Literature References: 1. Expert Panel on Integrated Guidelines for Cardiovascular Health and Risk Reduction in Children and Adolescents. Pediatrics 2011;128:S213 2. NCEP Expert Panel. Circulation 2003;110:227 Current Interpretive Data was last revised on 2018. Non-HDL Cholesterol 189 mg/dL [facility] Comment: Interpretive Data Ages < or = 19 years Acceptable: <120 mg/dL Borderline high: 120-144 mg/dL High: >145 mg/dL Ages > or = 20 years When triglycerides are >200 mg/dL, Non-HDL cholesterol is a secondary target of therapy with treatment goals that are 30 mg/dL greater than the LDL cholesterol target. Literature References: 1. Expert Panel on Integrated Guidelines for Cardiovascular Health and Risk Reduction in Children and Adolescents. Pediatrics 2011;128:S213 2. NCEP Expert Panel. Circulation 2004;110:227 Current Interpretive Data was last revised on 2018. Chol/HDL ratio 6 [facility] Blood 09/07/2023 3:22 PM JOB COACH/JOB DEVELOPER 09/07/2023 3:45 PM JOB COACH/JOB DEVELOPER Mirna Reid MD LAB BLOOD ORDERABLES Final R esult Performing Organization Address [facility] de Phone Number [address] [place] [address] * Hepatitis C antibody (01/17/2023 8:54 AM CDT) Hep C Ab Nonreactive Nonreactive [facility] Comment: Interpretive Data Nonreactive: Antibodies to HCV not detected. Does NOT exclude the possibility of recent exposure to HCV. Equivocal: Equivocal for HCV antibodies. Supplemental molecular testing will be automatically performed to determine infection status in accordance with current CDC screening recommendations. Reactive: Positive for HCV antibodies. This may represent current or past HCV infection. Supplemental molecular testing will be automatically performed to determine current infection status in accordance with current CDC screening recommendations. Interpretive data was last revised on 2019. Blood 01/17/2023 8:54 AM CDT 01/17/2023 9:33 AM CDT Mirna Reid MD LAB MICROBIOLOGY - GENERAL O RDERABLES Final Result Performing Organization Address [facility] Co de Phone Number [address] [place] [address] from Last 3 Months or Most Recently Relevant to Health Maintenance Advance Directives For more information, please contact: [phone] * Full Code (Latest Code Status on File) Date Activated Date Inactivated Comments 02/17/2021 3:22 PM 02/18/2021 4:35 AM * Full Code Date Activated Date Inactivated Comments 01/14/2021 2:29 PM 01/21/2021 6:01 PM * Full Code Date Activated Date Inactivated Comments 01/12/2021 1:09 PM 01/14/2021 2:29 PM * Full Code Date Activated Date Inactivated Comments 01/12/2021 1:09 PM 01/12/2021 1:09 PM Care Teams Warp Trucker Relationship Specialty Start Date End Date Arabella Jaquez MD [address] [place] [address] PCP - General Internal Medicine 06/27/24 Thad Dale MD [address] [place] [address] Consulting Physician Rheumatology 11/12/20 Fracisco Cedeno MD [address] [place] [address] Consulting Physician Cardiothoracic Surgery 01/21/21
--- OUTSIDE RECORDS SUMMARY | 2025-02-19 14:54 | XMS_ITS ---
Author Organization [facility] [place] [id number] Address [address] [place] [address] Care Team Providers Care Certified Prosthetist Vice President Name Role Phone Thad Dale MD Unavailable [phone] Fracisco Cedeno MD Unavailable [phone] Arabella Jaquez MD Primary Care Provider + Active Problems Problem Noted Date Diagnosed Date [...] (07/07/2022): Added automatically from request for surgery [id number] Type 2 diabetes mellitus with hyperglycemia 08/2021 [...] 10/06/2021 Assessment & Plan (10/06/2021 12:35 PM LIQUOR TESTER): With walking, needed assistance yesterday On exam L>R and R sided pill rolling tremor as well Needs neurologic work up With cokmplicated back surgery hx advise back imaging as well- referral to neurosurgery and MRI brain, spine orderex Postnasal drip 10/06/2021 Assessment & Plan (10/06/2021 12:38 PM LIQUOR TESTER): Restart flonase Cont atarax but would cconsider [...] 03/17/2021 Assessment & Plan (07/12/2021 10:52 AM LIQUOR TESTER): Full incontinence Wears depends Needs to see uro S/p prostatectomy Assessment & Plan (05/31/2021 5:28 PM CDT): Advise uro- referral placed for st urology per pt request S/p prostatectomy Impeding on his compliance with lasix Assessment & Plan (03/17/2021 12:39 PM CDT): Needs to see uro Attention-deficit hyperactivity disorder, unspec ified type 01/21/2021 01/11/2023 Chronic kidney disease, stage 2 (mild) 1 01/11/2023 Essential (primary) hypertension 01/21/2021 01/11/2023 Hyperlipidemia, unspecified 01/21/2021 06/0 03/2023 Malignant neoplasm of prostate 01/21/2021 0 01/11/2023 Chest pain 01/12/2021 NSTEMI (non-ST elevated myocardial infarction) 0 01/12/2021 Assessment & Plan (12/16/2022 3:06 PM CDT): Discussed with patient concern with hypoglycemia CHF (congestive heart failure) 01/12/2021 Overview (02/17/2021): S/p 6v cabg at [facility] 01/[address] [facility] after Assessment & Plan (03/17/2021 [...] 12/10/2020 Assessment & Plan (07/12/2021 10:53 AM LIQUOR TESTER): zayda has him on lasix 40 mg/da- [...] PM CDT): Checking psa Elevated antinuclear antibody (DUTCH) level 1999 Assessment & Plan (11/11/2020 2:50 [...] PM CDT): From description vs neuropathy? Positive dutch , working up ai Current Treatment and Therapy Plans No current plan information found. Past Treatment and Therapy Plans No past plan information found. Lifetime Dose Tracking * Chemical Lifetime Dose Automatic Entry Manual Entr y Air kerma at the reference point (Ka,r) 1,621 mGy 0 mGy 1,621 mGy Resolved Problems Problem Noted Date Diagnosed Date [...] mellitus Assessment & Plan (10/06/2021 12:39 PM LIQUOR TESTER): Increase tujeo to 32 units Needs to [...] daily Assessment & Plan (07/12/2021 10:53 AM LIQUOR TESTER): Uncontrolled Advise glucometer, he wants to hold off but will consider. Advise carrying around glucose tablets to take if he feels dizzy/lightheaded, presMedprivénope Inc tujeo to 26 units qhs aspart [...]
--- OUTSIDE RECORDS SUMMARY | 2025-02-19 14:54 | XMS_ITS | Encounter Summary ---
Author Organization [employer] Address [address] [place] [address] Care Team Providers Care Shotgun Shell Assembly Machine Adjuster Name Role Phone [facility], External Provider Primary Care Provider Un available Encounter Details Date Type Department Care Team (Latest Contact Info) Description 02/04/2004 Outpatient Historical [facility]PATIENT Mario Duque MD [address] [address] MALIGN NEOPL PROSTATE (CMS/HCC) (Primary Dx) Social History Tobacco Use Types Packs/Day Years Used Date Smoking Tobacco: Never Assessed Sex and Gender Information Value Date Recorded Sex Assigned at Not on file Legal Sex Male 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
--- OUTSIDE RECORDS SUMMARY | 2025-02-19 14:54 | XMS_ITS | Referral Summary ---
Author Organization [facility] [address] [place] [address] Care Team Providers Care In Home Tutor Name Role Phone Thad Dale MD Unavailable [phone] Fracisco Cedeno MD Unavailable [phone] Arabella Jaquez MD Primary Care Provider + Encounters Date Type Department Care Team Description 01/14/2025 Orders Only [facility] [place] [address] [facility] [address] [place] [address] Provider, MD Dean from Last 3 Months Allergies Active Allergy Reactions Criticality Noted Date Comments Cat Dander Itching Low 10/28/2020 Redness, nasal congestion, blister Medications rosuvastatin (CRESTOR) 20 mg tablet Take 1 tablet (20 mg total) by mouth daily 90 tablet 3 10/10/19 24 Active insulin glargine 100 unit/mL (3 mL) pen for injectionIndica tions:Type 2 diabetes mellitus with hyperglycemia, unspecified whether remote computer terminal operator insulin use (HCC) ADMINISTER 32 UNITS UNDER [...] (07/07/2022): Added automatically from request for surgery [id number] Type 2 diabetes mellitus with hyperglycemia 08/2021 [...] 10/06/2021 Assessment & Plan (10/06/2021 12:35 PM STERILIZATION TECH): With walking, needed assistance yesterday On exam L>R and R sided pill rolling tremor as well Needs neurologic work up With cokmplicated back surgery hx advise back imaging as well- referral to neurosurgery and MRI brain, spine orderex Postnasal drip 10/06/2021 Assessment & Plan (10/06/2021 12:38 PM STERILIZATION TECH): Restart flonase Cont atarax but would cconsider [...] 03/17/2021 Assessment & Plan (07/12/2021 10:52 AM STERILIZATION TECH): Full incontinence Wears depends Needs to see uro S/p prostatectomy Assessment & Plan (05/31/2021 5:28 PM CDT): Advise uro- referral placed for [facility] urology per pt request S/p prostatectomy [...] 01/12/2021 Overview (02/17/2021): S/p 6v cabg at [facility] 01/2021 In [facility] after Assessment & Plan (03/17/2021 [...] 12/10/2020 Assessment & Plan (07/12/2021 10:53 AM STERILIZATION TECH): zayda has him on lasix 40 mg/da- [...] mellitus Assessment & Plan (10/06/2021 12:39 PM STERILIZATION TECH): Increase tujeo to 32 units Needs to [...] daily Assessment & Plan (07/12/2021 10:53 AM STERILIZATION TECH): Uncontrolled Advise glucometer, he wants to hold off but will consider. Advise carrying around glucose tablets to take if he feels dizzy/lightheaded, presKahuna Inc tujeo to 26 units qhs aspart [...] needs bone scan? Discuss at next appt Immunizations Immunization Administration Dates Next Due Influenza, Quad, Adjuvantate d, Intramuscular 06/22/2021 Influenza, Quadrivalent, Hig h Dose, Preservative Free, Intrr 05/01/2023 PPD TEST 01/31/2021,01/22/2021 Pfizer SARS-CoV-2 Monovalent Vaccination (12+ Yrs) PURPLE 06/22/2021,10/22/2020,10/22/2020,09/28,09/28/2020 Pneumococcal Conjugate PCV 13 02/28/2016 Pneumococcal Polysaccharide PPV23 03/16/2021 Tdap 02/06/2011 ZOSTER Recombinant 08/08/2022(Deferred: Patient Refused) Social History Tobacco Use Types Packs/Day Years [...] on file Legal Sex Male 9:01 AM STERILIZATION TECH Gender Identity Not on file Sexual Orientation Not on file Last Filed Vital Signs Vital Sign Reading [...] 10/28/2024 3:32 PM CDT Plan of Treatment Not on file Procedures Procedure Name Priority Date/Time Associated Diagnosis Comments CBC - COMPLETE BLOOD COUNT, NO DIFFERENTIAL - [facility] Routine 01/13/2025 4:59 PM CDT BMP - BASIC METABOLIC PANEL (7) Routine 01/13/2025 4:57 PM CDT HEMOGLOBIN A1C Routine 06/16/2024 1:24 PM STERILIZATION TECH ALBUMIN CREATININE RATIO, URINE Routine 09/08/2023 5:10 AM STERILIZATION TECH EGFR Routine 09/07/2023 3:22 PM STERILIZATION TECH Laboratory examination ordered as part of a complete physical examination Other general symptoms and signs LIPID PANEL Routine 09/07/2023 3:22 PM STERILIZATION TECH Laboratory examination ordered as part of a complete physical examination Screening for cardiovascular condition HEPATITIS C ANTIBODY Routine 01/17/2023 8:54 AM CDT Need for hepatitis C screening test from Last 3 Months or Most Recently Relevant to Health Maintenance Results * CBC - Complete Blood Count, No Differential - [facility] (01/13/2025 4:59 PM CDT) Historical Provider MD LAB BLOOD ORDERABLES Aniya l Result Performing Organization Address City/[facility]/ZIP Co de Phone Number EXTERNAL LAB * BMP - Basic Metabolic Panel (7) (01/13/2025 4:57 PM CDT) Historical Provider MD LAB BLOOD ORDERABLES Aniya l Result Performing Organization Address [place]/[facility] Co de Phone Number EXTERNAL LAB * (ABNORMAL) Hemoglobin A1c (06/16/2024 1:24 PM STERILIZATION TECH) Blood [facility] Provider LAB BLOOD ORDERABLES Aniya l Result Performing Organization Address [place]/[facility] Co de Phone Number EXTERNAL LAB * (ABNORMAL) Albumin Creatinine Ratio, Urine (09/08/2023 5:10 AM STERILIZATION TECH) Albumin Ur 311.0 mg/L KAS[facility]A Comment: Interpretive Data No reference range established. Current interpretive data was last revised 2018. Creatinine Ur 131.0 mg/dL [facility]A Comment: Interpretive Data No reference range established. Current interpretive data was last revised 2018. Albumin Creatinine Ratio, Ur 237(H) 1 - 29 mg/g [facility] Urine 09/08/2023 5:10 AM STERILIZATION TECH 09/08/2023 10:40 AM STERILIZATION TECH Mirna Reid MD LAB URINE ORDERABLES Final R esult Performing Organization Address [place]/[facility] Co de Phone Number [facility]A [address] [facility] [place] [address] * eGFR (09/07/2023 3:22 PM STERILIZATION TECH) eGFR 52 mL/min/1. 73 m2 [facility]ANDRA BARTHOLOMEW Comment: Interpretive Data Reference Interval Normal >/= [...] last reviewed 2021. Blood 09/07/2023 3:22 PM STERILIZATION TECH 09/07/2023 3:45 PM STERILIZATION TECH us Mirna Reid MD LAB BLOOD ORDERABLES Final R esult [facility] [address] [facility] [place] [address] * (ABNORMAL) Lipid panel (09/07/2023 3:22 PM STERILIZATION TECH) Cholesterol 227(H) 30 - 199 mg/dL KASANDRA BARTHOLOMEW Comment: Interpretive Data Ages < or = [...] on 2018. Triglycerides 94 <=149 mg/dL KASANDRA BARTHOLOMEW Comment: Interpretive Data Ages < or = [...] on 2018. HDL 38(L) >=40 mg/dL KASANDRA BARTHOLOMEW Comment: Interpretive Data Ages < or = [...] 2018. LDL, calculated 170(H) <=129 mg/dL KASANDRA BARTHOLOMEW Comment: Interpretive Data Ages < or = [...] on 2018. Non-HDL Cholesterol 189 mg/dL KASANDRA BARTHOLOMEW Comment: Interpretive Data Ages < or = [...] last revised on 2018. Chol/HDL ratio 6 [facility]A Blood 09/07/2023 3:22 PM STERILIZATION TECH 09/07/2023 3:45 PM STERILIZATION TECH Mirna Reid MD LAB BLOOD ORDERABLES Final R esult Performing Organization Address [place]/[facility] Co de Phone Number [facility]DRA [facility] [place] [address] * Hepatitis C antibody (01/17/2023 8:54 AM CDT) Hep C Ab Nonreactive Nonreactive [facility] Comment: Interpretive Data Nonreactive: Antibodies to [...] O RDERABLES Final Result Performing Organization Address [place]/[facility] Co de Phone Number KASANDRA [facility] [place] [place] [address] from Last 3 Months or Most Recently Relevant to Health Maintenance Advance Directives For more information, please contact: [phone] * Full Code (Latest Code Status on File) Date Activated Date Inactivated Comments 02/17/2021 3:22 PM 02/18/2021 4:35 AM * Full Code Date Activated Date Inactivated Comments 01/14/2021 2:29 PM 01/21/2021 6:01 PM * Full Code Date Activated Date Inactivated Comments 01/12/2021 1:09 PM 01/14/2021 2:29 PM * Full Code Date Activated Date Inactivated Comments 01/12/2021 1:09 PM 01/12/2021 1:09 PM Care Teams In Home Tutor Relationship Specialty Start Date End Date Arabella Jaquez MD [address] [place] [address] PCP - General Internal Medicine 06/27/24 Thad Dale MD [address] [place] [address] Consulting Physician Rheumatology 11/12/20 Fracisco Cedeno MD [address] [place] [address] Consulting Physician Cardiothoracic Surgery 01/21/21
--- OUTSIDE RECORDS SUMMARY | 2025-02-19 14:54 | XMS_ITS | Encounter Summary ---
Author Organization [employer] Address [address] [place] [address] Care Team Providers Care Plywood Patcher Name Role Phone Sebastian, External Provider Primary Care Provider Un available Encounter Details Date Type Department Care Team (Latest Contact Info) Description 03/14/2004 Inpatient Historical [facility] Zaheer Tillman Keith, MD [address] 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
--- OUTSIDE RECORDS SUMMARY | 2025-02-19 14:54 | XMS_ITS | Encounter Summary ---
Author Organization [employer] Address [address] [place] [address] Care Team Providers Care Supervisor Rides Name Role Phone [facility], External Provider Primary Care Provider Un available Encounter Details Date Type Department Care Team (Late st Contact Info) Description 12/16/2006 Outpatient Historical [facility] Mario Duque MD [address] [address] Social History Tobacco Use Types Packs/Day Years Used Date Smoking Tobacco: Never Assessed Sex and Gender Information Value Date Recorded Sex Assigned at Not on file Legal Sex Male 4:00 AM CLERK CHECKER Gender Identity Not on file Sexual Orientation Not on file documented as of this encounter Plan of Treatment Not on file documented as of this encounter Visit Diagnoses Not on filedocumented in this encounter Care Teams Supervisor Rides Relationship Specialty Start Date End Date [facility], External Provider [address] [place] [address] PCP - General 08/04/16 documented as of this encounter
--- OUTSIDE RECORDS SUMMARY | 2025-02-19 14:54 | XMS_ITS | Encounter Summary ---
Author Organization [employer] Address [address] [place] [address] Care Team Providers Care Credit Review Analyst Name Role Phone [facility], External Provider Primary Care Provider Un available Encounter Details Date Type Department Care Team (Late st Contact Info) Description 03/08/2004 Outpatient Historical [facility] ([facility]) [address] 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
--- OUTSIDE RECORDS SUMMARY | 2025-02-19 14:54 | XMS_ITS | Encounter Summary ---
Author Organization [employer] Address [address] [place] [address] Care Team Providers Care Junior Accounting Clerk Name Role Phone [facility], External Provider Primary Care Provider Un available Encounter Details Date Type Department Care Team (Late st Contact Info) Description 01/17/2007 Outpatient Historical [facility] Mario Duque MD [address] [address] Social History Tobacco Use Types Packs/Day Years Used Date Smoking Tobacco: Never Assessed Sex and Gender Information Value Date Recorded Sex Assigned at Not on file Legal Sex Male 4:00 AM HEALTHCARE ADMINISTRATOR Gender Identity Not on file Sexual Orientation Not on file documented as of this encounter Plan of Treatment Not on file documented as of this encounter Visit Diagnoses Not on filedocumented in this encounter Care Teams Junior Accounting Clerk Relationship Specialty Start Date End Date [facility], External Provider [address] [place] [address] PCP - General 08/04/16 documented as of this encounter
--- OUTSIDE RECORDS SUMMARY | 2025-02-19 14:54 | XMS_ITS | Encounter Summary ---
Author Organization [employer] Address 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 Gender Identity Not on file Sexual Orientation Not on file documented as of this encounter Plan of Treatment Not on file documented as of this encounter Procedures Procedure Name Priority Date/Time Associated Diagnosis Comments PSA Routine 03/10/2005 10:01 AM CDT documented in this encounter Results * PSA (03/10/2005 10:01 AM CDT) PSA <0.1 0.0 - 4.0 ng/mL INTERFACE SYSTEM Comment:Performed on [employer] System 03/10/2005 10:0 1 AM CDT us Mario Duque MD CHEMISTRY ORDERABLES Final Result INTERFACE SYSTEM Refer to clinic/hospital department documented in this encounter Visit Diagnoses Diagnosis Malignant neoplasm of prostate (CMS/HCC)- Primary Malignant neoplasm of prostate documented in this encounter Care Teams Wagon Person Relationship Specialty Start Date End Date [facility], External Provider [address] [place] [address] PCP - General 08/04/16 documented as of this encounter
--- OUTSIDE RECORDS SUMMARY | 2025-02-19 14:54 | XMS_ITS | Clinical Summary ---
Author Organization [facility] Address [address] [place] [address] Care Team Providers Care Ceramics Instructor Name Role Phone Arabella Jaquez MD Primary Care Provider [phone] Allergies Active Allergy Reactions Criticality Noted Date Comments Cat Dander Itching,Unknown Low 10/28/2020 Redness, nasal congestion, blister Pollen Extract Unknown 01/20/2025 Medications Insulin Glargine-yfgn 100 UNIT/ML Solution Pen-injector ADMINISTER 32 UNITS UNDER THE SKIN DAILY IN THE EVENING 4 Active losartan (COZAAR) 25 MG tablet Take 1 tablet (25 mg total) by mouth daily. 4 Active metoprolol tartrate (LOPRESSOR) 25 MG tablet Take 1 tablet (25 mg total) by mouth daily. 5 Active rosuvastatin (CRESTOR) 10 MG tablet Take 1 tablet (10 mg total) by mouth daily. 5 Active furosemide (LASIX) 40 MG tablet Take 1 tablet (40 mg total) by mouth 2 (two) times daily. 5 11/06/19 26 Active Active Problems Problem Noted Date Diagnosed Date Coronary artery disease invo lving coronary bypass graft of [place] heart without angina pectoris 01/25/2025 Diabetic ketoacidosis withou t coma associated with type 2 diabetes mellitus ([facility]) 01/20/2025 Diabetes mellitus, type 2 ([facility]) 01/04 History of malignant neoplasm of prostate 2024 CKD (chronic kidney disease) stage 3, GFR 30-59 ml/min 10/10/2023 Morbid (severe) obesity due to excess calories 0 08/12/2022 Suspected sleep apnea 08/12/2022 Wheezing 08/12/2022 Disorder of soft tissue 07/07/2022 Overview (01/20/2025): Added automatically from request for surgery [id number] Type 2 diabetes mellitus wit h hyperglycemia ([facility]) 01/04/2022 Weakness 10/06/2021 Leg swelling 05/31/2021 Status post coronary artery bypass graft 021 Urinary incontinence 03/17/2021 Attention-deficit hyperactivity disorder, unspec ified type 01/21/2021 Essential (primary) hypertension 01/21/2021 Chest pain 01/12/2021 CHF (congestive heart failure) ([facility]) 01/12/2021 Overview (01/20/2025): S/p 6v cabg at [facility] 01/2021 In [facility] after NSTEMI (non-ST elevated myoc ardial infarction) ([facility]) 01/12/2021 Bilateral leg edema 12/10/2020 Pure hypercholesterolemia 11/11/2020 Protein-calorie malnutrition, moderate ([facility]) 02/29/2016 Neuropathy in diabetes ([facility]) 006 Mixed hyperlipidemia 03/03/2005 Elevated antinuclear antibody (SONI) level 1999 Raynaud's disease without gangrene 01/05/2000 Encounters Date Type Department Care Team Description 01/20/2025 12:30 PM CDT Office Visit [facility] [address] Janet Holguin MD Consult; Coronary Artery Disease; Breathing Problem; Edema (BLE); Hypertension 01/20/2025 Travel 01/06/2025 Orders Only [facility] [address] Satish Hwang RMA from Last 3 Months Immunizations Immunization Administration Dates Next Due Flublok (RIV3, Trivalent, 0.5mL) 06/16/2024 Fluzone High Dose - >Age 65 (Prefilled Syringe) 05/25/2023,05/01/2023 PFIZER COVID-19 (ORIGINAL FO RMULATION, PURPLE CAP) mRNA, LNP-S, PF, 30 MCG/0.3 ML DOSE 07/13/2021 Pneumococcal (Pneumovax 23) 03/16/2021 Pneumococcal (Prevnar 13) 02/28/2016 Pneumococcal (Prevnar 20) 09/20/2023 Tdap (Generic) 02/06/2011 Family History Medical History Relation Comments Coronary artery disease Father Depression Father Diabetes Father Kidney Disease Father Prostate Cancer Father alcholism Father Peripheral vascular disease Mother Relation Status Comments Father Mother Social History Tobacco Use Types Packs/Day Years Used Date Smoking Tobacco: Never Smokeless Tobacco: Never Alcohol Use Standard Drinks/Week Comments Not Currently 0 (1 standard drink = 0.6 oz pur e alcohol) Sex and Gender Information Value Date Recorded Sex Assigned at Not on file Legal Sex Male 8:11 AM CDT Gender Identity Not on file Sexual Orientation Not on file Last Filed Vital Signs Vital Sign Reading Time Taken Comments Blood Pressure 160/78 01/20/2025 1:44 PM CDT Pulse 80 01/20/2025 1:44 PM CDT Temperature 36.7 C (98.1 F) 07/18/2024 1:49 PM LICENSED 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 BROKER Respiratory Rate 19 07/18/2024 5:30 PM LICENSED 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 [facility] [address] [place], [place] [phone] Health Maintenance Due Date Last Done Comments Colorectal Cancer Screening Colonoscopy (10 Years) 1950 Kidney Health Evaluation 1950 Diabetes: Retinopathy Eye Exam 02/11/1968 Hepatitis C 02/11/1968 Zoster Vaccines (1 of 2) 02/11/2000 DTaP, Tdap and Td Vaccines (2 - Td or Tdap) 02/06/2021 02/06/2011 COVID-19 Vaccine ( season) 2024 07/13/2021, 06/22/2021, 10/22/2020, Additional history exists Hemoglobin A1C 12/14/2024 06/16/2024, 09/2023, 01/17/2023, Additional history exists RSV Immunization or 60+ Years (1 - 1-dose 75+ series) 2025 Lipid Panel 06/16/2025 06/16/2024, 03/2024, 07/12/2022, Additional history exists Pneumococcal Vaccine: 50+ Years Completed 09/20/2023, 03/16/2021, 02/28/2016 Meningococcal B Vaccine Aged Out No l onger eligible based on patient's age to complete this topic Meningococcal Vaccine Aged Out No angel ceci eligible based on patient's age to complete this topic RSV Immunizations Under 20 Months Aged Out No longer eligible based on patient's age to complete this topic Procedures Procedure Name Priority Date/Time Associated Diagnosis Comments ELECTROCARDIOGRAM (NON MIDMARK ACQUIRED) Routine 01/20/2025 1:55 PM CDT Essential (primary) hypertension HEMOGLOBIN, GLYCOSYLATED Routine 06/16/2024 from Last 3 Months or Most Recently Relevant to Health Maintenance Results * ELECTROCARDIOGRAM (01/20/2025 1:55 PM CDT) 01/20/2025 1:55 PM CDT Narrative [facility] - 01/24/2025 6:06 AM CDT [facility] Test Date: 2025-01-20 Pat Name: ABRAHAM CASTELAN Department: 112 Room: Gender: Male Mail Processing Associate: : 1950 Requested By: JANET HOLGUIN Order Number: [id number] Reading MD: Janet Holguin Measurements Intervals Ulysses Rate: 79 P: 43 CA: 303 QRS: -33 QRSD: 118 T: 55 QT: 388 QTc: 445 Interpretive Statements SINUS RHYTHM WITH FIRST DEGREE AV BLOCK LEFT AXIS DEVIATION MINIMAL VOLTAGE CRITERIA FOR LVH, CONSIDER NORMAL VARIANT ANTEROSEPTAL MYOCARDIAL INFARCTION, OF INDETERMINATE AGE Procedure Note Janet Holguin MD - 01/24/2025 [facility] Test Date: 2025-01-20 Pat Name: ABRAHAM CASTELAN Department: 112 Room: Gender: Male Mail Processing Associate: : 1950 Requested By: JANET HOLGUIN Order Number: [id number] Reading MD: Janet Holguin Measurements Intervals Ulysses Rate: 79 P: 43 CA: 303 QRS: -33 QRSD: 118 T: 55 QT: 388 QTc: 445 Interpretive Statements SINUS RHYTHM WITH FIRST DEGREE AV BLOCK LEFT AXIS DEVIATION MINIMAL VOLTAGE CRITERIA FOR LVH, CONSIDER NORMAL VARIANT ANTEROSEPTAL MYOCARDIAL INFARCTION, OF INDETERMINATE AGE us Janet Holguin MD PROCEDURES-ORDERABLE NO CHARGE F inal Result [facility] * (ABNORMAL) HEMOGLOBIN, GLYCOSYLATED (06/16/2024) HGB A1C 6.5(A) 4.8 - 5.6 % 06/16/2024 us Default History Genericprovider LABORATORY Final Result from Last 3 Months or Most Recently Relevant to Health Maintenance Care Teams Ceramics Instructor Relationship Specialty Start Date End Date Arabella Jaquez MD PCP - General INTERNAL MEDICINE 02/13/24
--- OUTSIDE RECORDS SUMMARY | 2025-02-19 14:54 | XMS_ITS ---
Author Organization [facility] Address [address] [facility] [address] [place] [address] Care Team Providers Care Grinding Wheel Facer Name Role Phone Dr. Arabella Jaquez Primary Care Provider UnaFracisco Hewitt Unavailable [phone] REASON FOR VISIT ESCOBAR RFC Encounters Encounter Location Date Provider Diagnosis [facility] [address] [address] 09/19/2024 Fracisco Baig Plan Of Treatment No Information Progress Notes * Abraham ASENCIODOB: 0 (75 yo M)Acc No.[id number]:09/19/2024 progress note Patient: Abraham VINES Provider: Karla Baig DPM :1950 A ge:74 Y S ex:Male Date:09/19/2024 Address:[facility] [address] [facility] Pcp:Dr. Arabella Jaquez Subjective: * Chief Complaints: * 1 . ESCOBAR RFC. * Medical History: Objective: * Vitals: Assessment: Plan: * Treatment: * Images: * Electronic signature of Fracisco Baig DPM on 02/19/2025 at 02:54 PM CDT Sign off status: Pending * Provider: Karla Baig DPM Date: 0 09/19/2024 Generated for Printi ng/Faxing/eTransmitting on: 0 02/19/2025 02:54 PM CDT
--- OUTSIDE RECORDS SUMMARY | 2025-02-19 14:54 | XMS_ITS | Clinical Summary ---
Author Organization [facility] Address [address] [place] [address] Phone Care Team Providers Care Nurse Monitoring Name Role Phone [facility], External Provider Primary Care Provider Un available Allergies No known active allergies Medications lancets (ONETOUCH DELICA LANCETS) 30 gaugeIndications: Type II or unspecified type diabetes mellitus without mention of complication, uncontrolled 1 Strip by [facility].(Non-Drug ; Combo Route) route 3 times daily before meals. 100 Each 0 5 Active insulin syringe-needle U-100 (BD INSULIN SYRINGE ULTRA-FINE) 1 mL 31 gauge x 15/64 Syringe Use tiwice daily for insulin. 1 Box 1 6 Active insulin NPH-regular (HumuLIN 70/30) 100 unit/mL (70-30) vial Take 30 units SQ with breakfast and 20 units SQ with dinner. 10 mL 1 6 Active blood sugar diagnostic StripIndications: Type 2 diabetes mellitus without complication ([facility]) Use 4 times a day. 100 Strip 0 6 Active Blood-Glucose Meter Please provide patient with the Kerline Reli-On meter. 1 Device 0 6 Active Active Problems Problem Noted Date Diagnosed Date Protein-calorie malnutrition, moderate 6 Type II or unspecified type diabetes mellitus without mention of complication, uncontrolled 03/02/2015 Carpal tunnel syndrome of right wrist 03/02/2015 Diabetic ketoacidosis withou t coma associated with type 2 diabetes mellitus Sepsis Acute bronchitis Type 2 diabetes mellitus with hyperglycemia Immunizations Immunization Administration Dates Next Due (ADACEL/BOOSTRIX)(10 YR UP) TDAP VACCINE, 0.5ML, IM 02/06/2011 (PREVNAR 13)(6 WKS UP) PNEUM OCOCCAL CONJUGATE (PCV13) 0.5 ML, IM 02/28/2016 Family History Medical History Relation Name Comments Diabetes Father Kidney Disease Father in 1974 Cancer Other dad, granddads Relation Name Status Comments Father Mother Other Social History Tobacco Use Types Packs/Day Years Used Date Smoking Tobacco: Never Alcohol Use Standard Drinks/Week Comments No 0 (1 standard drink = 0.6 oz pur e alcohol) Sex and Gender Information Value Date Recorded Sex Assigned at Not on file Legal Sex Male 4:00 AM PHOTOGRAPHY AND PRINTS CURATOR Gender Identity Not on file Sexual Orientation Not on file Last Filed Vital Signs Vital Sign Reading Time Taken Comments Blood Pressure 132/88 08/04/2016 5:00 PM PHOTOGRAPHY AND PRINTS CURATOR Pulse 103 08/04/2016 5:00 PM PHOTOGRAPHY AND PRINTS CURATOR Temperature 36.9 C (98.5 F) 08/04/2016 2:35 PM PHOTOGRAPHY AND PRINTS CURATOR Respiratory Rate 20 08/04/2016 2:35 PM PHOTOGRAPHY AND PRINTS CURATOR Oxygen Saturation 100% 08/04/2016 5:00 PM PHOTOGRAPHY AND PRINTS CURATOR Inhaled Oxygen Concentration - - Weight 82 kg (180 lb 12.4 oz) 08/04/2016 1:05 PM PHOTOGRAPHY AND PRINTS CURATOR Height 188 cm (6' 2) 02/28/2016 3:00 PM CDT Body Mass Index 23.21 02/28/2016 3:00 PM CDT Plan of Treatment Health Maintenance Due Date Last Done Comments DIABETES ANNUAL FOOT EXAM 02/11/1968 DIABETES ANNUAL RETINAL EXAM 02/11/1968 COLORECTAL SCREENING 1995 Colorectal Cancer Screening 1995 FIT-DNA Q 3 years 1995 FIT/FOBT Q 1 year 1995 Flex Sig/CT Colonography Q 5 years 1995 ZOSTER VACCINE (1 of 2) 02/11/2000 DIABETES MICROALBUMIN ANNUAL SCREEN 03/02/201603/02 LDL CHOLESTEROL ANNUAL 03/02/2016 03/02/2015 PNEUMOCOCCAL VACCINE 50+ YEA RS (2 of 2 - PPSV23, PCV20, or PCV21) 04/24/2016 02/28/2016 DIABETES HBA1C Q 6 MONTHS 08/29/2016 02/27/2016, DTAP/TDAP/TD VACCINES (2 - Td or Tdap) 02/06/2021 RSV VACCINE (60+ or ) (1 - 1-dose 75+ series) 2025 INFLUENZA VACCINE (#1) 2025 Procedures Procedure Name Priority Date/Time Associated Diagnosis Comments HEMOGLOBIN A1C Stat 02/27/2016 12:30 PM CDT MICROALBUMIN/CREATI NINE RATIO, RANDOM UR Routine 03/02/2015 3:35 PM CDT Type II or unspecified type diabetes mellitus without mention of complication, uncontrolled LIPID PANEL Routine 03/02/2015 3:35 PM CDT Type II or unspecified type diabetes mellitus without mention of complication, uncontrolled from Last 3 Months or Most Recently Relevant to Health Maintenance Results * (ABNORMAL) HEMOGLOBIN A1C (02/27/2016 12:30 PM CDT) HEMOGLOBIN A1C 11.2(H) 4.0 - 6.0 % 02/27/2016 1:20 PM CDT [facility] Comment:Note: Effective as o f 08/27/2015 a new methodology, Turbidimetric inhibition immunoassay (TINIA),has been implemented. EST. AVG GLUCOSE, A1C 275 mg/dL 02/27/2016 1:20 PM CDT [facility] Blood Collection / Unknown 02/27/2016 12:30 PM CDT 02/27/2016 12:52 PM CDT us Renata Wilcox MD CHEMISTRY ORDERABLES Final R esult [facility] CLIA# [id number] [address] [place] [address] * MICROALBUMIN/CREATININE RATIO, RANDOM UR (03/02/2015 3:35 PM CDT) MICROALBUMIN, URINE 5.3 mg/dL 03/02/2015 9:16 PM [facility] CREATININE, URINE 202.6 40.0 - 278.0 mg/dL 03/02/2015 9:16 PM [facility] Comment: Reference Range varies with fluid intake and diet. MICROALBUMIN/CR EAT RATIO, UR 26.2 0.0 - 29.0 mg/g Creatinine 03/02/2015 9:16 PM T [facility] Comment: Condition mg/g Creatinine Normal Males <17 Normal Females <25 Microalbuminuria Males 17-299 Microalbuminuria Females 25-299 Overt proteinuria >=300 Urine Collection / Unknown 03/02/2015 3:35 PM CDT 03/02/2015 3:35 PM CDT Brando Frazier MD URINE ORDERABLES Final Result [facility]# [id number] [address] [place] [address] * (ABNORMAL) LIPID PANEL (03/02/2015 3:35 PM CDT) CHOLESTEROL 283(H) <200 mg/dL 03/02/2015 9:37 PM T [facility] TRIGLYCERIDE 211(H) <150 mg/dL 03/02/2015 9:37 PM [facility] Buy buy tea [facility] HDL 40 40 - 59 mg/dL 03/02/2015 9:37 PM T [facility] LDL CALCULATED 201(H) <100 mg/dL 03/02/2015 9:37 PM [facility] NON-HDL CHOLESTEROL 243(H) <130 mg/dL 03/02/2015 9:37 PM T [facility] Blood Venipuncture - L ab Collect / Unknown 03/02/2015 3:35 PM CDT 03/02/2015 3:35 PM CDT Narrative [facility] - 03/02/2015 9:37 PM CDT TOTAL CHOLESTEROL mg/dL Desirable <200 Borderline high 200-239 High >=240 TRIGLYCERIDES mg/dL Normal <150 Borderline high 150-199 High 200-499 Very high >=500 HDL CHOLESTEROL mg/dL Low <40 Normal 40-60 Desirable >60 LDL CHOLESTEROL mg/dL Optimal <100 Low risk 100-129 Borderline high 130-159 High 160-189 Very high >=190 NON HDL CHOLESTEROL mg/dL Desirable <130 Borderline high 130-159 High 160-189 Very high >=190 Based on AHA/NCEP Guidelines us Brando Frazier MD CHEMISTRY ORDERABLES Final Res ult [facility] CLIA# [id number] [address] [place] [address] from Last 3 Months or Most Recently Relevant to Health Maintenance Advance Directives For more information, please contact: [phone] * Full Code (Latest Code Status on File) Date Activated Date Inactivated Comments 03/02/2016 2:13 PM 03/03/2016 8:30 PM Care Teams Nurse Monitoring Relationship Specialty Start Date End Date [facility], External Provider [address] [place] [address] PCP - General 08/04/16
== END 2025-02-19 15:23 | disposition home or self-care (01) ==
LOC: ANHED 14:50
PROVIDERS: Emergency Provider Emergency Medicine; PCP Internal Medicine
DX: S01.81XA Laceration without foreign body of other part of head, initial encounter (principal); R91.1 Solitary pulmonary nodule; Z23 Encounter for immunization; M50.322 Other cervical disc degeneration at C5-C6 level; W18.09XA Striking against other object with subsequent fall, initial encounter
CPT/HCPCS: 12013; 70450; 70486; 72125; 90471; 90715; 99284